=== PATIENT | female | born 1940 | race African-American/Black ===

== ENCOUNTER 2024-12-16 17:42 | Inpatient (IN) | payer MEDICARE, BC ==
[~2024-12-16] VITALS: Ht 162.6 cm; Wt 53.1 kg
--- NOTE | 2024-12-16 18:42 | ECG ---
[facility] Test Date: 2024-12-16 Test Time: 18:41:27 Pat Name: DELVIS PRITCHARD Department: [facility] ED Patient ID: [facility]-[id number] Room: 0279T Gender: F Milling Machine Operator: CASSIDY : 1940 Requested By: SERGIO ESPANA Order Number: [id number] Reading MD: Cain Millard Measurements Intervals [place] Rate: 68 P: -38 MI: 189 QRS: -54 QRSD: 111 T: 100 QT: 388 QTc: 413 Interpretive Statements Sinus rhythm Probable left atrial enlargement Incomplete RBBB and LAFB Electronically Signed On 12-19-2024 20:35:00 PDT by Cain Millard Please click the below link to view image of tracing.
--- NOTE | 2024-12-16 18:45 | ED.PDOC ---
SOB-HPI HPI Comments HPI: 84 year old female presents to the ED via EMS with a chief compliant of shortness of breath onset 2 days. Per EMS, patient has been experiencing shortness of breath for the past 2 days, is on home O2 2L. Patient was seen by PCP 2 days ago for a productive cough with brown phlegm, was prescribed z-pac, albuterol, Solu-Medrol. Patient states she is currently experiencing mid thoracic back pain as well as chest pain, describes pain as a sharp pain, rates 6/10. Daughter states she noticed patient's LT foot has been swollen for the past few days. Denies fever, chills, nausea, vomiting, diarrhea, abdominal pain, headache, dizziness, fall, injury. No other symptoms or modifying factors present at this time. Initial Vitals BP: 130/78 HR: 67 RR: 18 O2: 94% Temp: 99.1 F Past Medical History: aortic aneurysm, mid thoracic aneurysm, iliac aneurysm, emphysema, HTN Past Surgical History: hip surgery Social History: Denies ETOH, smoking, and drug use. Medications: z-pac Allergies: NKDA TARLTON; SOB, PALE, R EYE CLOSED, COUGH Z PACK. DAUGHTER AT BESIDE. HPI: Poor Historian. REVIEW OF SYSTEMS: CONSTITUTIONAL: Denies acute: fever, diaphoresis, chills, HEAD: Denies acute: headache, photophobia Eyes: Denies acute: Double vision, vision loss, eye pain, eye discharge. EARS: Denies acute: tinnitus, hearing loss, ear discharge, ear pain, THROAT: Denies acute: sore throat, swelling, difficulty swallowing , pain with swallowing, change in voice. NECK: Denies acute: neck pain, neck swelling, stiff neck. HEART: Denies acute : chest pain, palpitations, LUNGS: Denies acute: wheezing, hemoptysis ABDOMEN: Denies acute: Nausea, Vomiting, diarrhea, melena , hematemesis, hematochezia SKIN: Denies acute: rash, redness, lesions, itchiness. EXTREMITIES: Denies acute: calf pain, numbness, tingling, weakness, denies pain in extremity. Denies acute: Neuro: Denies acute: focal neurological deficit, motor or sensory focal neurological deficit, tremors, seizure like activity, confusion, dizziness, change in mental status, loss of bowel or bladder function, cauda equina like symptoms. : Denies acute: dysuria, hematuria, flank pain, increase in urinary frequency. PSYCH: Denies acute: hallucination, suicidal ideation, homicidal ideation. FEMALE: Denies acute: abnormal vaginal bleeding, foul odor, unusual discharge. PHYSICAL EXAM: General: -----[id number]---acute distress, awake and alert. Head: normocephalic, atraumatic. Neck: supple, trachea is midline, no swelling. Throat: Normal phonation. Eyes:, no erythema, no purulent discharge, no proptosis, no icterus. Right eye is closed with a history of aneurysm behind the right eye Heart: regular rate, regular rhythm, no significant murmur appreciated. Lungs: no apparent respiratory distress, Able to speak in full sentences. No wheezing, no rhonchi, no crackles. No stridors Clear to auscultation bilaterally. Abdomen: Slight generalized tender to palpation, non distended, soft, no guarding, no rebound, + bowel sounds. Neuro: Awake, Alert, oriented to name, self, situation, follows commands GCS=15. Speech is normal. Skin: no petechia, no purpura, no cyanosis, non-pale, not jaundice. Lower extremities: --no - Pitting edema no deformity, no focal swelling, no calf TTP. Makes eye contact. moves all four extremities. Face: no apparent facial droop. ED COURSE: DISCLAIMER: This medical document was created using an electronic medical record system with voice recognition software and computerized dictation system. Although this document has been carefully reviewed, there might still be some phonetic and typographical errors. Occasional wrong-word or "sound-alike" substitutions may have occurred due to the inherent limitations of voice recognition software. These areas are purely typographical due to imperfections of the software programs and do not reflect any compromise in the patient's medical care. Please read the chart carefully and recognize, using context, where these substitutions have occurred. Chief Complaint: Shortness of Breath Time Seen by MD: 18:30 Reviewed notes: Medications, Allergies Information Source: Patient, Relative (Child), Emergency Med Personnel Mode of Arrival: EMS Severity: Moderate Timing: Days Duration: Since onset Context: At Rest PE Risk Factors: None History of: Recent Antibiotic Past Medical History PAST MEDICAL HISTORY: HTN Past Medical History (Other): emphysema, aneurysm Surgical History: Denies all surgeries BUILDING DRAFTER History: No Pertinent BUILDING DRAFTER History Family History Family History: Reviewed,noncontributory to illness, No family hx of Cancer, No family hx of DM, No family hx of Heart marino, No family hx of HTN, No family hx ofKidney marino, No family hx of Liver marino, No family hx of Lung marino, No family hx of Stroke Social History Smoker: Non-Smoker Alcohol: Denies ETOH Use Drugs: Denies Drug Use Lives In: Home Was a procedure done? Was a procedure done?: No X-Ray, Labs, Meds, VS Vital Signs Date Time Temp Pulse Resp B/P (MAP) Pulse Ox O2 Delivery O2 Flow Rate FiO2 12/16/24 20:36 64 20 91 Nasal Cannula* 2 28 12/16/24 19:31 64 20 126/75 (92) 91 12/16/24 18:41 68 12/16/24 17:51 99.1 67 18 130/78 94 99.1 Lab Test 12/16/24 19:43 12/16/24 18:55 Range/Units Troponin I High Sensitivity 19 19 </=34 ng/L White Blood Count 7.5 4.4-10.8 10^3/uL Red Blood Count 3.62 L 4.0-5.20 10^6/uL Hemoglobin 11.3 L 12.2-16.2 g/dL Hematocrit 33.4 L 36.0-46.0 % Mean Corpuscular Volume 92.4 80.0-100.0 fL Mean Corpuscular Hemoglobin 31.1 28.0-32.0 pg Mean Corpuscular Hemoglobin Concent 33.7 32.0-36.0 g/dL Red Cell Distribution Width 14.1 11.8-14.3 % Platelet Count 192 140-450 10^3/uL Mean Platelet Volume 6.7 L 6.9-10.8 fL Neutrophils (%) (Auto) 94.7 H 37.0-80.0 % Lymphocytes (%) (Auto) 2.2 L 10.0-50.0 % Monocytes (%) (Auto) 3.0 0.0-12.0 % Eosinophils (%) (Auto) 0.0 0.0-7.0 % Basophils (%) (Auto) 0.1 0.0-2.0 % Neutrophils # (Auto) 7.1 1.6-8.6 10 ^3/uL Lymphocytes # (Auto) 0.2 L 0.4-5.4 10 ^3/uL Monocytes # (Auto) 0.2 0-1.3 10 ^3/uL Eosinophils # (Auto) 0 0-0.8 10 ^3/uL Basophils # (Auto) 0 0-0.2 10 ^3/uL Nucleated Red Blood Cells 0.0 % Sodium Level 135 L 136-145 mmol/L Potassium Level 4.8 3.5-5.1 mmol/L Chloride Level 98 98-107 mmol/L Carbon Dioxide Level 27 20-31 mmol/L Anion Gap 10 5-15 Blood Urea Nitrogen 32 H 9-23 mg/dL Creatinine 1.18 H 0.550-1.02 mg/dL Glomerular Filtration Rate Calc 46 >90 mL/min BUN/Creatinine Ratio 27.1 H 10.0-20.0 Serum Glucose 122 H 74-106 mg/dL Lactic Acid Level 2.1 *H 0.4-2.0 mmol/L Calcium Level 10.6 H 8.7-10.4 mg/dL Total Bilirubin 0.4 0.2-1.0 mg/dL Aspartate Amino Transferase (AST) 20 13-40 U/L Alanine Aminotransferase (ALT) 22 7-40 U/L Alkaline Phosphatase 103 46-116 U/L B-Type Natriuretic Peptide 357.93 0-100 pg/mL Total Protein 7.4 5.7-8.2 g/dL Albumin 4.0 3.2-4.8 g/dL Time of 1ST Reevaluation: 19:00 Reevaluation 1ST: Unchanged Patient Education/Counseling: Diagnosis, Treatment Family Education/Counseling: Diagnosis, Treatment Departure 1 Departure Time of Disposition: 21:00 Impression: Primary Impression: Dyspnea Additional Impressions: Pleural effusion Pneumonia History of aneurysm Disposition: ADMITTED INPATIENT Admit to: [facility] Condition: Guarded Discharged With: Self Critical Care Note Critical Care Time?: No I personally scribed for SERGIO ESPANA DO ([email or web address]) on 12/16/24 at 18:45. Electronically submitted by Laura Gomez ([email or web address]). I personally scribed for SERGIO ESPANA DO ([email or web address]) on 12/16/24 at 19:20. Electronically submitted by Laura Gomez [email or web address]). SERGIO ESPANA DO Dec 16, 2024 18:45
[2024-12-16 19:22] LABS: Hematocrit 33.4 % (36.0-46.0); Hemoglobin 11.3 g/dL (12.2-16.2); Mean Corpuscular Hemoglobin 31.1 pg (28.0-32.0); Mean Corpuscular Volume 92.4 fL (80.0-100.0); Nucleated Red Blood Cells % 0.0 %
--- NOTE | 2024-12-16 19:34 | DVH ---
CHEST RADIOGRAPH Indication: sob Technique: Single frontal view of the chest was obtained COMPARISON: CT CHEST LUNG CANCER SCREEN BASELINE / ANNUAL on DOS: 10/09/24 FINDINGS: Lines and Tubes: None Lungs: Bibasilar opacities may reflect atelectasis or pneumonia Pleura: Small bilateral pleural effusions. No pneumothorax. Cardiomediastinal contours: Unremarkable Bones: Unremarkable IMPRESSION: 1. Small bilateral pleural effusions. 2. Bibasilar opacities may reflect atelectasis or pneumonia.
[2024-12-16 19:37] LABS: Alanine Aminotransferase 22 U/L (7-40); Albumin 4.0 g/dL (3.2-4.8); Alkaline Phosphatase 103 U/L (46-116); Anion Gap 10 (5-15); BUN/Creatinine Ratio 27.1 (10.0-20.0); Carbon Dioxide 27 mmol/L (20-31); Chloride 98 mmol/L (98-107); Potassium 4.8 mmol/L (3.5-5.1); Total Protein 7.4 g/dL (5.7-8.2)
[2024-12-16 19:38] LABS: Bilirubin, Total 0.4 mg/dL (0.2-1.0)
[2024-12-16 19:39] LABS: Blood Urea Nitrogen 32 mg/dL (9-23); Calcium 10.6 mg/dL (8.7-10.4); Glucose 122 mg/dL (74-106); Sodium 135 mmol/L (136-145)
[2024-12-16 19:43] LABS: Lactic Acid w/Reflex 2.1 mmol/L (0.4-2.0)
[2024-12-16] MEDS: IOHEXOL 350 MG/ML 100ML IJ ONE (20:24)
[2024-12-16 20:36] VITALS: PULSE 64; RESP 20; O2SAT 91
--- NOTE | 2024-12-16 21:07 | DVH ---
Exam: CT CT CHEST/AB/PL W CON- IV ONLY History: sob, abd pain h/o aneurysm, COMPARISON: XY CHEST PORTABLE on DOS: 12/16/24, CT CHEST LUNG CANCER SCREEN BASELINE / ANNUAL on DOS: 10/09/24 Technique: Multidetector spiral CT of the abdomen and pelvis was performed from lung bases to pubic s ymphysis. Intravenous contrast was administered during this examination. Portal venous imaging was obtained. Axial, coronal and sagittal multiplanar reformats were performed by the technologist on a separate workstation. Radiation Dose : 1. Abdomen/Pelvis: CTDIvol 8.1mGy, DLP 5.44 mGy*cm. CONTRAST: Type of contrast: Isovue-300 Contrast injected: 100 ml Findings: Lung Bases: Bibasilar consolidations may reflect pneumonia or aspiration. Moderate bilateral pleural effusions. Liver: The liver is normal in size. No focal lesions. Normal hepatic vascular enhancement. Gallbladder and Biliary Tree: Unremarkable Spleen: Unremarkable Pancreas: The pancreas is normal in appearance without focal lesions or abnormal enhancement. Adrenal Glands: Unremarkable Kidneys: No hydronephrosis. Bladder: Unremarkable Bowel: The stomach is grossly normal in appearance. Small bowel and colon are normal in caliber and d istribution. The appendix is not visualized; however, no secondary findings of acute appendicitis id entified. Ascites: Absent Lymphadenopathy: No mesenteric, retroperitoneal or periportal lymphadenopathy. Abdominal Wall and Mesentery: Unremarkable. Vasculature: Aneurysmal dilatation of the aortic arch measuring up to 3.6 cm in diameter. Aneurysmal dilatation of the suprarenal abdominal aorta measuring up to 6.5 x 8.6 cm. Aneurysmal dilatation of t he infrarenal abdominal aorta measuring up to 4.5 cm. Aneurysmal dilatation of the left common iliac artery up to 2.4 cm. Aneurysmal dilatation of the right common iliac artery up to 2.3 cm. No pulmona ry embolism identified. Pelvic Organs: Unremarkable Musculoskeletal: Status post left hip arthroplasty. IMPRESSION: 1. No pulmonary embolism 2. Bibasilar consolidations may reflect pneumonia or aspiration. 3. Moderate bilateral pleural effusions. 4. Aneurysmal dilatation of the aortic arch measuring up to 3.6 cm in diameter. No dissection. 5. Aneurysmal dilatation of the suprarenal abdominal aorta measuring up to 6.5 x 8.6 cm. No dissectio n. 6. Aneurysmal dilatation of the infrarenal abdominal aorta measuring up to 4.5 cm. No dissection. 7. Aneurysmal dilatation of the left common iliac artery up to 2.4 cm. No dissection. 8. Aneurysmal dilatation of the right common iliac artery up to 2.3 cm. No dissection. Radiation optimization: All CT scans at this facility use at least one of these dose optimization federica hniques: automated exposure control mA and/or kV adjustment per patient size (includes targeted exam s where dose is matched to clinical indication) or iterative reconstruction.
[2024-12-16] MEDS: FUROSEMIDE 40 MG/4 ML VIAL IV ONE (21:21)
[2024-12-16] MEDS: IPRATROPIUM BROM 0.5 MG/2.5ML INH SOL NEB ONE (21:44)
[2024-12-16] MEDS: ALBUTEROL SULF 2.5 MG/0.5ML(0.5%) NEB SOLN NEB ONE (21:44)
[2024-12-16] MEDS: methylPREDNISolone SOD SUCC 125 MG/2 ML VL IV ONE (22:19)
--- NOTE | 2024-12-16 23:08 | DVHHPRES ---
History of Present Illness Resident Creating Document: NEYMAR JORDAN History of Present Illness Cecile Sloan is a 84-year-old female patient who presents to ED with chief complaint of worsening dyspnea and left-sided chest pain which radiates towards back and worsens with cough, cough is productive with light brown phlegm. Per patient her dyspnea has been present since 11/10/2024 since she has been discharged from the [facility], where she was discharged with home oxygen between 2-3 L/min). Patient did present worsening dyspnea, but after presenting chest pain and productive car, patient and daughter decided to be evaluated in the emergency department. Patient does report ptosis of her right eye since April 2024, where she has been evaluated by neurologist and primary care physician who diagnosed her with a cerebral aneurysm (per daughter and patient this aneurysm is not the cause of her ptosis). Patient needs to be evaluated by an farm agent Denies any other associated symptoms. 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 Aortic aneurysm is getting more dilated as time progresses but patient is clear that she does not want to do any invasive procedure. COPD, questionable cerebral aneurysm Surgical history: Left hip replacement, right foot repair Family history: Unknown cancer in sister, heart disease in father and mother Social history: Lives in [place] with daughter (she is the [id number] next of kin). Ex tobacco abuse (60 pack-year history of smoking) quit in November 2024. 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 Denies current tobacco, alcohol and other drug abuse. Patient originally from [place] , moved in April to [place] to resolve her left right eye ptosis. Allergies: Denies Home medication: Does not recall all her medication but she takes atenolol and amlodipine. Patient seen and examined at bedside. Currently has no new complaints. Is currently on nasal cannula at 4 L/min. Patient admitted to telemetry. Past Medical History Per HPI Past Surgical History Per HPI Family History Per HPI Past Social History Per HPI Review of Systems Review of Systems Per HPI Allergies: Coded Allergies: NO KNOWN ALLERGIES (Unverified , 12/16/24) Exam Vital Signs Vital Signs Date Time Temp Pulse Resp B/P (MAP) Pulse Ox O2 Delivery O2 Flow Rate FiO2 12/16/24 22:00 70 18 142/84 (103) 96 12/16/24 21:52 Nasal Cannula* 3 32 12/16/24 21:01 97.8 97.8 Exam Patient lying in bed, in no acute distress General: Lucid, afebrile, mucosae are moist. Ptosis of right eye and ocular deviation of right eye towards lateral side. Cardiovascular: Normal S1 and S2. Diastolic murmur best heard in aortic foci decrescendo intensity 3/6. No gallops or rubs Respiratory: Regular ventilation mechanics, on nasal cannula at 4 L/min. Bibasilar distant lung sounds, rest of lung auscultation is clear Abdomen: Soft, nontender, no organomegaly, normal bowel sounds. Pulsatile mass best felt in epigastrium area. MSK/skin: Mobilizes 4 limbs. Skin is dry and warm Neurological: Oriented in 3 spheres. No motor no sensitive deficits. Pupils are isocoric and reactive Labs/Xrays Labs Test 12/16/24 22:14 12/16/24 21:51 12/16/24 21:15 12/16/24 18:55 Range/Units Troponin I High Sensitivity 19 </=34 ng/L Lactic Acid Level 2.0 0.4-2.0 mmol/L White Blood Count 7.5 4.4-10.8 10^3/uL Red Blood Count 3.62 L 4.0-5.20 10^6/uL Hemoglobin 11.3 L 12.2-16.2 g/dL Hematocrit 33.4 L 36.0-46.0 % Mean Corpuscular Volume 92.4 80.0-100.0 fL Mean Corpuscular Hemoglobin 31.1 28.0-32.0 pg Mean Corpuscular Hemoglobin Concent 33.7 32.0-36.0 g/dL Red Cell Distribution Width 14.1 11.8-14.3 % Platelet Count 192 140-450 10^3/uL Mean Platelet Volume 6.7 L 6.9-10.8 fL Neutrophils (%) (Auto) 94.7 H 37.0-80.0 % Lymphocytes (%) (Auto) 2.2 L 10.0-50.0 % Monocytes (%) (Auto) 3.0 0.0-12.0 % Eosinophils (%) (Auto) 0.0 0.0-7.0 % Basophils (%) (Auto) 0.1 0.0-2.0 % Neutrophils # (Auto) 7.1 1.6-8.6 10 ^3/uL Lymphocytes # (Auto) 0.2 L 0.4-5.4 10 ^3/uL Monocytes # (Auto) 0.2 0-1.3 10 ^3/uL Eosinophils # (Auto) 0 0-0.8 10 ^3/uL Basophils # (Auto) 0 0-0.2 10 ^3/uL Nucleated Red Blood Cells 0.0 % Sodium Level 135 L 136-145 mmol/L Potassium Level 4.8 3.5-5.1 mmol/L Chloride Level 98 98-107 mmol/L Carbon Dioxide Level 27 20-31 mmol/L Anion Gap 10 5-15 Blood Urea Nitrogen 32 H 9-23 mg/dL Creatinine 1.18 H 0.550-1.02 mg/dL Glomerular Filtration Rate Calc 46 >90 mL/min BUN/Creatinine Ratio 27.1 H 10.0-20.0 Serum Glucose 122 H 74-106 mg/dL Calcium Level 10.6 H 8.7-10.4 mg/dL Total Bilirubin 0.4 0.2-1.0 mg/dL Aspartate Amino Transferase (AST) 20 13-40 U/L Alanine Aminotransferase (ALT) 22 7-40 U/L Alkaline Phosphatase 103 46-116 U/L B-Type Natriuretic Peptide 357.93 0-100 pg/mL Total Protein 7.4 5.7-8.2 g/dL Albumin 4.0 3.2-4.8 g/dL SEPSIS Sepsis Screen Date sepsis recognized/suspect: Dec 16, 2024 Time Sepsis recognized/suspect: 1929 Recent Procedure: No On Antibiotic Therapy: No Respiratory Rate >20: No Heart Rate >90: No Temp<36 C (96.8 F) or >38.3 C: No SBP <90 or MAP <65 mmHG: No New Acute Mental Status Change: No Is the patient on CPAP, BIPAP,: No Physician Orders Sales Utility Representative (12/16/24 ) Chest Portable (12/16/24 18:28) Ct Chest/Ab/Pl W Con- Iv Only (12/16/24 18:28) Urinalysis (12/16/24 22:12) Admit (12/16/24 23:01) Code Status (12/16/24 23:01) Acetaminophen Tablet (Tylenol Tablet) (12/16/24 23:15) Hydrocodone-Acet 5/325mg Tab ([place] 32 (12/16/24 23:15) Ondansetron Hcl (Zofran) (12/16/24 23:15) Complete Blood Count (12/17/24 04:00) Comprehensive Metabolic Panel (12/17/24 04:00) Cardiac Diet-2gna,Lofat,Lochol (12/17/24 Breakfast) Echo 2d Mode Cardiac Dop (12/16/24 23:01) Nitroglycerin Sublingual (Ntrostat Subli (12/16/24 23:15) Morphine Sulfate Injection (12/16/24:) Oxygen By Nasal Cannula (12/16/24:) Stat Ekg For Chest Pain (12/16/24:) Notify Md Of Changes From Base (12/16/24 23:) Teasel Gig Operator For 24 Hours (12/16/24 23:01) Emergency Dysrhythmia Protocol (12/16/24 23:) Rhythm Strips Once Every Shift (12/16/24 23:01) Azithromycin 500mg/ 250ml (Zithromax 50 (12/17/24 10:00) Azithromycin 500mg/ 250ml (Zithromax 50 (12/16/24 23:15) Cefepime 1 Gm (12/17/24 10:00) Cefepime 1 Gm (12/16/24 23:15) Labetalol Hcl (Labetalol Hcl) (12/16/24 23:15) Atenolol Tablet (Tenormin Tablet) (12/17/24 10:00) Atenolol Tablet (Tenormin Tablet) (12/16/24 23:15) Vital Signs Date Time Temp Pulse Resp B/P (MAP) Pulse Ox O2 Delivery O2 Flow Rate FiO2 12/16/24 22:00 70 18 142/84 (103) 96 12/16/24 21:52 16 93 Nasal Cannula* 3 32 12/16/24 21:21 126/77 12/16/24 21:01 97.8 73 22 104/58 (73) 91 97.8 12/16/24 20:36 64 20 91 Nasal Cannula* 2 28 12/16/24 19:31 64 20 126/75 (92) 91 12/16/24 18:41 68 12/16/24 17:51 99.1 67 18 130/78 94 99.1 Laboratory Tests Test 12/16/24 18:55 12/16/24 21:15 Lactic Acid Level 2.1 mmol/L (0.4-2.0) *H 2.0 mmol/L (0.4-2.0) White Blood Count 7.5 10^3/uL (4.4-10.8) Medications Medications Dose Ordered Sig/Nicky Route Start Time Stop Time Status Last Admin Dose Admin Albuterol 2.5 mg ONCE ONCE NEB 12/16/24 21:30 12/16/24 21:37 DC 12/16/24 21:44 2.5 MG Ceftriaxone Sodium 50 ml @ 100 mls/hr ONCE ONCE IV 12/16/24 21:00 12/16/24 21:29 DC 12/16/24 21:23 100 MLS/HR Furosemide 40 mg ONCE ONCE IV 12/16/24 21:00 12/16/24 21:02 DC 12/16/24 21:21 40 MG Ipratropium [place] 1 mg ONCE ONCE NEB 12/16/24 21:30 12/16/24 21:37 DC 12/16/24 21:44 1 MG Methylprednisolone Sodium Succinate 125 mg ONCE ONCE IV 12/16/24 21:30 12/16/24 21:37 DC 12/16/24 22:19 125 MG Assessment/Plan Assessment/Plan ASSESSMENT Acute respiratory failure probably secondary to pneumonia versus bilateral pleural effusion Community-acquired pneumonia Gram-positive/Gram-negative Bilateral pleural effusion COPD exacerbation 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 Currently on oxygen therapy with nasal cannula [address] of chest which shows no pulmonary embolism, bibasilar consolidation, moderate bilateral pleural effusion and aortic aneurysm and arch (3.6 cm), suprarenal abdominal aorta (6.5 x 8.6 cm), infrarenal abdominal aorta (4.5) left common iliac (2.4 cm) and right common iliac (2.3 cm). Aortic aneurysm appears to compress right atrium of heart. Patient clearly states that she is not interested in repair of her aortic aneurysm. We will not transferred to higher level of care due to patient's wishes to not repair her aortic aneurysm. Currently under empiric IV antibiotic (cefepime and azithromycin). On IV stero ids and bronchodilators Optimize afterload and preload to reduced parietal stress of aorta. Currently continue with the atenolol and IV labetalol PRN Goals of care discussed with patient and daughter ([id number]) for over 18 minutes: DNR/DNI Discussed plan with Dr. Dias, patient and nurses: Patient will be admitted to telemetry, we will optimize medical treatment (including optimizing afterload and preload). Currently under empiric IV antibiotics, oxygen therapy, bronchodilators and IV steroids. Patient has poor prognosis. A biting by patient's wishes in not transferred to higher level of care since patient does not want to repair her aortic aneurysm. Plan discussed with: Patient, Daughter, Other (Nurses) My Orders Orders - NEYMAR JORDAN RESIDENT Procedure Category Date Status Time Urinalysis LAB 12/16/24 In Process 22:12 Admit ADMIT 12/16/24 Transmitted 23:01 Code Status CODE 12/16/24 Transmitted 23:01 Acetaminophen Tablet PHA 12/16/24 Transmitted (Tylenol Tablet) 23:15 Hydrocodone-Acet PHA 12/16/24 Transmitted 5/325mg Tab ([place] 23:15 Ondansetron Hcl PHA 12/16/24 Transmitted (Zofran) 23:15 Complete Blood Count LAB 12/17/24 Verified 04:00 Comprehensive LAB 12/17/24 Verified Metabolic Panel 04:00 Cardiac DIET 12/17/24 Transmitted Diet-2gna,Lofat,Lochol Breakfast Echo 2d Mode Cardiac US 12/16/24 Transmitted DOP 23:01 Nitroglycerin PHA 12/16/24 Transmitted Sublingual (Ntrostat 23:15 Morphine Sulfate PHA 12/16/24 Transmitted Injection 23:15 Oxygen By Nasal RT 12/16/24 Transmitted Cannula 23:01 Stat Ekg For Chest BERTA 12/16/24 Transmitted Pain 23:01 Notify Of Changes BERTA 12/16/24 Transmitted From Base 23:01 Teasel Gig Operator For BERTA 12/16/24 Transmitted 24 Hours 23:01 Emergency Dysrhythmia [facility] 12/16/24 Transmitted Protocol 23:01 Rhythm Strips Once [facility] 12/16/24 Transmitted Every Shift 23:01 Azithromycin 500mg/ PHA 12/17/24 Transmitted 250ml (Zithromax 50 10:00 Azithromycin 500mg/ PHA 12/16/24 Transmitted 250ml (Zithromax 50 23:15 Cefepime 1 Gm PHA 12/17/24 Transmitted 10:00 Cefepime 1 Gm PHA 12/16/24 Transmitted 23:15 Labetalol Hcl PHA 12/16/24 Transmitted (Labetalol Hcl) 23:15 Atenolol Tablet PHA 12/17/24 Transmitted (Tenormin Tablet) 10:00 Atenolol Tablet PHA 12/16/24 Transmitted (Tenormin Tablet) 23:15 Date of Service: Dec 16, 2024 Billing Provider: NEO DIAS MD Common Visit Codes: 40850-MCPXXYA INP/OBS CARE (HIGH) Secondary Visit Codes: 48860-FIVDHCID CARE PLAN 30 MINUTES NEYMAR JORDAN RESIDENT Dec 16, 2024 23:08
[2024-12-16] MEDS ORDERED: LABETALOL HCL 20 MG/4 ML VL IV PRN (23:15)
[2024-12-16] MEDS ORDERED: NITROGLYCERIN 0.4 MG SL TAB SL PRN (23:15)
[2024-12-16] MEDS ORDERED: ONDANSETRON HCL 4 MG/2 ML VIAL IV PRN (23:15)
[2024-12-16] MEDS ORDERED: MORPHINE SULFATE INJ 2 MG/ml SYRG IV PRN (23:15)
[2024-12-16] MEDS ORDERED: ACETAMINOPHEN 325 MG TAB PO PRN (23:15)
[2024-12-16] MEDS: SODIUM CHLORIDE 0.9% 1,000 ML IV ONE (23:30)
[2024-12-16] MEDS: LEVALBUTEROL HCL 1.25 MG/3 ML NEB ONE (23:35)
[2024-12-16 23:45] VITALS: PULSE 72; RESP 21; O2SAT 95
[2024-12-16 23:45] LABS: Urine Protein, UAD Negative (Negative)
[2024-12-16 23:51] VITALS: PULSE 70; RESP 19; O2SAT 98
[2024-12-17] VITALS (15 sets, daily range): BP systolic 114–144; BP diastolic 74–98; PULSE 53–94; RESP 16–22; TEMP 97.6–98.2; O2SAT 89–100
[2024-12-17 00:08] LABS: INR 1.19 (0.9-1.15); Partial Thromboplastin Time 30.7 SEC (24.5-34.5); Prothrombin Time 12.4 sec (9.3-11.8)
[2024-12-17 00:28] LABS: Magnesium 2.1 mg/dL (1.6-2.6); Triglycerides 42.0 mg/dL (< 150)
[2024-12-17 00:30] LABS: Cholesterol 151.0 mg/dL (< 200)
[2024-12-17 00:35] LABS: HDL Cholesterol 67.0 mg/dL (40-59)
[2024-12-17 00:46] LABS: Lipase 26.0 U/L (12-53)
[2024-12-17] MEDS: CEFEPIME 1GM/50ML 50 ML IV ONE (01:42)
[2024-12-17] MEDS: ATENOLOL 25 MG TAB PO ONE (01:43)
[2024-12-17] MEDS ORDERED: AMLO1TAB23 PO (02:41)
[2024-12-17] MEDS: SODIUM CHLORIDE 0.9% 1,000 ML IV SCH (02:43)
[2024-12-17] MEDS: AZITHROMYCIN 500MG/ 250ML 250 ML IV ONE (02:55)
[2024-12-17 04:43] LABS: Amphetamine Screen, Urine Neg (NEGATIVE); Barbiturate Scree,Urine Neg (NEGATIVE); Benzodiazephine Screen, Urine Neg (NEGATIVE); Cannabinoid Screen, Urine Neg (NEGATIVE); Cocaine Screen, Urine Neg (NEGATIVE); Opiate Scree,Urine Neg (NEGATIVE); Phencyclidine Screen, Urine Neg (NEGATIVE)
[2024-12-17] MEDS: IPRATROPIUM BROM 0.5 MG/2.5ML INH SOL NEB SCH (07:15)
[2024-12-17] MEDS: LEVALBUTEROL HCL 1.25 MG/3 ML NEB NEB SCH (07:15)
[2024-12-17 07:25] LABS: Alanine Aminotransferase 17 U/L (7-40); Albumin 4.0 g/dL (3.2-4.8); Alkaline Phosphatase 107 U/L (46-116); Anion Gap 11 (5-15); BUN/Creatinine Ratio 23.3 (10.0-20.0); Carbon Dioxide 29 mmol/L (20-31); Potassium 4.3 mmol/L (3.5-5.1); Total Protein 7.7 g/dL (5.7-8.2)
[2024-12-17 07:26] LABS: Bilirubin, Total 0.4 mg/dL (0.2-1.0)
[2024-12-17 07:28] LABS: Blood Urea Nitrogen 28 mg/dL (9-23); Calcium 10.6 mg/dL (8.7-10.4); Chloride 95 mmol/L (98-107); Glucose 126 mg/dL (74-106); Sodium 135 mmol/L (136-145)
[2024-12-17 07:30] LABS: Hematocrit 35.2 % (36.0-46.0); Hemoglobin 11.9 g/dL (12.2-16.2); Mean Corpuscular Hemoglobin 31.2 pg (28.0-32.0); Mean Corpuscular Volume 92.3 fL (80.0-100.0)
[2024-12-17 09:25] LABS: RBC Morphology Normal; Total Cells Counted 100.0 (100)
[2024-12-17] MEDS: CEFEPIME 1GM/50ML 50 ML IV SCH (09:35)
[2024-12-17] MEDS: HYDROcodone-ACET 5/325MG TAB PO PRN (09:36)
[2024-12-17] MEDS: methylPREDNISolone SOD SUCC 40 MG/ML VL IV SCH (09:40)
[2024-12-17] MEDS: ATENOLOL 25 MG TAB PO SCH (10:39)
--- NOTE | 2024-12-17 14:44 | DVHPN2 ---
Progress Note Date Seen: Dec 17, 2024 Medical Necessity Reason Pt with a Central, PICC or Fol: No Subjective Patient reports: No new complaints Review of Systems: HEENT:Normal, CVS:Normal, RESPIRATORY:Normal, GI:Normal, :Normal, MSK:Normal, NEURO:Normal Objective vital signs Vital Sign Date Time Temp Pulse Resp B/P (MAP) Pulse Ox O2 Delivery O2 Flow Rate FiO2 12/17/24 13:00 97.6 53 17 124/82 (96) 91 97.6 12/17/24 11:58 Nasal Cannula* 1 24 Total Intake and Output 12/16/24 12/16/24 12/17/24 15:00 23:00 07:00 Intake Total 50 ml 300 ml Balance 50 ml 300 ml medications Current Medications Medications Dose Ordered Sig/Nicky Route Start Time Stop Time Status Last Admin Dose Admin Acetaminophen 325 mg Q4HP PRN PO 12/16/24 23:15 Acetaminophen/ Hydrocodone Bitart 1 tab Q4HP PRN PO 12/16/24 23:15 12/17/24 09:36 1 TAB Ondansetron HCl 4 mg Q4HP PRN IV 12/16/24 23:15 Nitroglycerin 0.4 mg Q5MINP PRN SL 12/16/24 23:15 Morphine Sulfate 2 mg Q30M PRN IV 12/16/24 23:15 Azithromycin 250 ml @ 125 mls/hr DAILY@2100 IV 12/17/24 21:00 Cefepime HCl 50 ml @ 12.5 mls/hr Q12HR IV 12/17/24 10:00 12/17/24 09:35 12.5 MLS/HR Labetalol HCl 10 mg Q2HPRN PRN IV 12/16/24 23:15 Atenolol 50 mg DAILY PO 12/17/24 10:00 12/17/24 10:39 50 MG Levalbuterol HCl 0.625 mg Q6HR NEB 12/17/24 00:00 12/17/24 11:58 0.625 MG Ipratropium [place] 0.5 mg Q6HWA NEB 12/17/24 06:00 12/17/24 11:58 0.5 MG Methylprednisolone Sodium Succinate 40 mg BID IV 12/17/24 10:00 12/17/24 09:40 40 MG Sodium Chloride 1,000 ml @ 50 mls/hr Q20H IV 12/17/24 02:30 12/17/24 02:43 50 MLS/HR Examination: GENERAL:Normal, HEENT:Normal, NECK:Normal, LUNGS:Normal, CVS:Normal, ABDOMEN:Normal, MSK:Normal, SKIN:Normal, NEURO:Normal, NEURO:Abnormal (right ptosis), :Normal laboratory and microbiology Laboratory Tests 12/17/24 06:11 Test 12/17/24 06:11 Range/Units Serum Glucose 126 H 74-106 mg/dL Problem List/Assessment/Plan Problem List/Assessment/Plan #1 acute resp failure: cont oxygen #2 copd with exacerbation: cont meds #3 pneumonia- gram positive/neg: iv antibiotics #4 ?acute systolic/diastolic heart failure: echo #5 multiple aneurysms- does not wish aggressive treatment- is aware of aneurysms advance care planning- time spent - 18 mins- dnr status Plan discussed with: Patient My Orders My Orders Orders - TONY SERRATO MD Procedure Category Date Status Time Ceftriaxone Ivpb PHA 12/18/24 Transmitted Rocephin 09:00 Azithromycin Tablet PHA 12/18/24 Transmitted (Zithromax Tablet) 10:00 Basic Metabolic Panel LAB 12/18/24 Verified 06:00 Complete Blood Count LAB 12/18/24 Verified 06:00 Date of Service: Dec 17, 2024 Billing Provider: TONY SERRATO MD Common Visit Codes: [id number] INP/OBS CARE(HIGH) Secondary Visit Codes: [id number] CARE PLAN 30 MINUTES TONY SERRATO MD Dec 17, 2024 14:44
[2024-12-17] MEDS: DOCUSATE SOD 100 MG CAP PO ONE (14:45)
[2024-12-17] MEDS: POLYETHYLENE GLYCOL 17 GM PWDR PO ONE (16:31)
[2024-12-17] MEDS ORDERED: AZITHROMYCIN 500MG/ 250ML 250 ML IV SCH (21:00)
[2024-12-18] VITALS (14 sets, daily range): BP systolic 124–140; BP diastolic 82–98; PULSE 53–74; RESP 16–18; TEMP 96.4–99.1; O2SAT 89–99
[2024-12-18 07:37] LABS: Hematocrit 34.4 % (36.0-46.0); Hemoglobin 11.6 g/dL (12.2-16.2); Mean Corpuscular Hemoglobin 31.2 pg (28.0-32.0); Mean Corpuscular Volume 92.1 fL (80.0-100.0); Nucleated Red Blood Cells % 0.0 %
[2024-12-18 07:46] LABS: Potassium 4.9 mmol/L (3.5-5.1)
[2024-12-18 07:47] LABS: Anion Gap 7 (5-15); Calcium 10.2 mg/dL (8.7-10.4); Carbon Dioxide 30 mmol/L (20-31)
[2024-12-18 07:52] LABS: BUN/Creatinine Ratio 33.3 (10.0-20.0)
[2024-12-18 07:53] LABS: Blood Urea Nitrogen 45 mg/dL (9-23); Chloride 95 mmol/L (98-107); Glucose 153 mg/dL (74-106); Sodium 132 mmol/L (136-145)
[2024-12-18] MEDS: AZITHROMYCIN 250 MG TAB PO SCH (09:55)
[2024-12-18] MEDS: DOCUSATE SOD 100 MG CAP PO PRN (09:55)
[2024-12-18] MEDS: POLYETHYLENE GLYCOL 17 GM PWDR PO PRN (09:55)
--- NOTE | 2024-12-18 12:01 | DVHPN2 ---
Reviewed: Care Plan, H&P, Labs, Medications, Previous Orders, Radiology Changes from previous H/P or p: No Changes Objective Vitals Vital Signs Date Time Temp Pulse Resp B/P (MAP) Pulse Ox O2 Delivery O2 Flow Rate FiO2 12/18/24 09:55 56 131/84 12/18/24 09:00 96.4 16 95 96.4 12/18/24 08:00 Nasal Cannula* 3 32 Intake/Output Intake and Output 12/18/24 07:00 Intake Total 1576 ml Balance 1576 ml Intake Oral 1526 ml IV Total 50 ml # Voids 4 Medications Current Medications Medications Dose Ordered Sig/Nicky Route Start Time Stop Time Status Last Admin Dose Admin Acetaminophen 325 mg Q4HP PRN PO 12/16/24 23:15 Acetaminophen/ Hydrocodone Bitart 1 tab Q4HP PRN PO 12/16/24 23:15 12/18/24 09:56 1 TAB Ondansetron HCl 4 mg Q4HP PRN IV 12/16/24 23:15 Nitroglycerin 0.4 mg Q5MINP PRN SL 12/16/24 23:15 Morphine Sulfate 2 mg Q30M PRN IV 12/16/24 23:15 Labetalol HCl 10 mg Q2HPRN PRN IV 12/16/24 23:15 Atenolol 50 mg DAILY PO 12/17/24 10:00 12/18/24 09:55 50 MG Levalbuterol HCl 0.625 mg Q6HR NEB 12/17/24 00:00 12/18/24 06:03 0.625 MG Ipratropium [place] 0.5 mg Q6HWA NEB 12/17/24 06:00 12/18/24 06:02 0.5 MG Methylprednisolone Sodium Succinate 40 mg BID IV 12/17/24 10:00 12/18/24 09:55 40 MG Ceftriaxone Sodium 50 ml @ 100 mls/hr DAILY@09 IV 12/18/24 09:00 12/18/24 09:00 100 MLS/HR Azithromycin 500 mg DAILY PO 12/18/24 10:00 12/18/24 09:55 500 MG Polyethylene Glycol 17 gm DAILYPRN PRN PO 12/17/24 14:45 12/18/24 09:55 17 GM Docusate Sodium 100 mg BIDPRN PRN PO 12/17/24 14:45 12/18/24 09:55 100 MG Laboratory Results Laboratory Tests 12/18/24 06:58 Chemistry Test 12/18/24 06:58 Calcium Level 10.2 mg/dL (8.7-10.4) Urinalysis Test 12/16/24 22:14 Urine Color Light-yellow (Yellow) Urine Clarity Clear (Clear) Urine pH 6.0 (5.0-9.0) Urine Specific [place] 1.020 (1.001-1.035) Urine Protein Negative (Negative) Urine Ketones Negative (Negative) Urine Blood Negative /uL (Negative) Urine Nitrite Negative (Negative) Urine Bilirubin Negative (Negative) Urine Urobilinogen Normal mg/dL (Negative) Urine Leukocyte Esterase 1+ /uL (Negative) Urine RBC None seen /hpf (0 - 4) Urine Microscopic WBC 1 /HPF (0-5) Urine Squamous Epithelial Cells Few /hpf (<5) Urine Bacteria None seen /hpf (None Seen) Urine Glucose Normal mg/dL (Normal) Microbiology Microbiology Date/Time Source Procedure Growth Status 12/16/24 23:45 Blood Blood Culture - Preliminary NO GROWTH AFTER 24 HOURS OF INCUBATION. Resulted 12/16/24 22:14 Voided Urine Urine Culture - Preliminary Resulted Labs and/or images reviewed: Labs reviewed by me, Image(s) reviewed by me Assessment/Plan Assessment/Plan Covering for Dr. Gonzalez Acute hypoxic respiratory failure: Oxygen by nasal cannula Acute COPD exacerbation: Albuterol Atrovent med neb Solu-Medrol Possible pneumonia community-acquired Gram-positive versus Gram-negative: Rocephin azithromycin Acute exacerbation chronic systolic versus diastolic congestive heart failure echocardiogram: Lasix History of multiple aneurysms patient does not want any aggressive treatment Daughter angel Elder is an RN [phone] bedside and requesting patient to be discharged to [facility] hospice when ready to be discharged Plan discussed with: Patient Date of Service: Dec 18, 2024 Billing Provider: JB CHAVEZ MD Common Visit Codes: [id number] INP/OBS CARE(HIGH) JB CHAVEZ MD Dec 18, 2024 12:01
[2024-12-18] MEDS: HYDROmorphone HCL 2 MG/ML VL/or syr IV ONE (21:42)
[2024-12-19] VITALS (8 sets, daily range): BP systolic 66–152; BP diastolic 40–107; PULSE 61–112; RESP 14–30; TEMP 97.4–98.1; O2SAT 93–99
[2024-12-19] MEDS: HYDROmorphone HCL 2 MG/ML VL/or syr IV PRN (06:16)
--- NOTE | 2024-12-19 09:05 | DVHINCON2 ---
Date Seen: Dec 19, 2024 Family History: FH: pancreatic cancer G8 SISTER Allergies: Coded Allergies: NO KNOWN ALLERGIES (Unverified , 12/16/24) Home Meds Reported Medications Amlodipine Besylate (Amlodipine Besylate) 10 Mg Tab, 1 TAB PO DAILY 12/17/24 Current Medications Current Medications Medications (Trade) Dose Ordered Sig/Nicky Route PRN Reason Start Time Stop Time Status Last Admin Azithromycin (Zithromax Tablet) 500 mg DAILY PO 12/18/24 10:00 12/18/24 09:55 Hydromorphone HCl (Dilaudid Injection) 0.5 mg Q4HPRN PRN IV SEVERE PAIN (7-10 PAIN SCALE) 12/19/24 04:45 12/19/24 06:16 Vital Signs Vital Signs Date Time Temp Pulse Resp B/P (MAP) Pulse Ox O2 Delivery O2 Flow Rate FiO2 12/19/24 06:46 68 18 152/97 12/19/24 05:53 98 12/19/24 05:42 Nasal Cannula* 3 32 12/19/24 05:00 98.1 98.1 Labs/Diagnostic Data Labs Test 12/18/24 06:58 12/17/24 06:11 12/16/24 23:40 12/16/24 22:14 Range/Units White Blood Count 7.7 4.4-10.8 10^3/uL Red Blood Count 3.73 L 4.0-5.20 10^6/uL Hemoglobin 11.6 L 12.2-16.2 g/dL Hematocrit 34.4 L 36.0-46.0 % Mean Corpuscular Volume 92.1 80.0-100.0 fL Mean Corpuscular Hemoglobin 31.2 28.0-32.0 pg Mean Corpuscular Hemoglobin Concent 33.9 32.0-36.0 g/dL Red Cell Distribution Width 13.7 11.8-14.3 % Platelet Count 184 140-450 10^3/uL Mean Platelet Volume 7.0 6.9-10.8 fL Neutrophils (%) (Auto) 91.2 H 37.0-80.0 % Lymphocytes (%) (Auto) 2.6 L 10.0-50.0 % Monocytes (%) (Auto) 6.2 0.0-12.0 % Eosinophils (%) (Auto) 0.0 0.0-7.0 % Basophils (%) (Auto) 0.0 0.0-2.0 % Neutrophils # (Auto) 7.1 1.6-8.6 10 ^3/uL Lymphocytes # (Auto) 0.2 L 0.4-5.4 10 ^3/uL Monocytes # (Auto) 0.5 0-1.3 10 ^3/uL Eosinophils # (Auto) 0 0-0.8 10 ^3/uL Basophils # (Auto) 0 0-0.2 10 ^3/uL Nucleated Red Blood Cells 0.0 % Sodium Level 132 L 136-145 mmol/L Potassium Level 4.9 3.5-5.1 mmol/L Chloride Level 95 L 98-107 mmol/L Carbon Dioxide Level 30 20-31 mmol/L Anion Gap 7 5-15 Blood Urea Nitrogen 45 #H 9-23 mg/dL Creatinine 1.35 H 0.550-1.02 mg/dL Glomerular Filtration Rate Calc 39 >90 mL/min BUN/Creatinine Ratio 33.3 H 10.0-20.0 Serum Glucose 153 H 74-106 mg/dL Calcium Level 10.2 8.7-10.4 mg/dL Differential Total Cells Counted 100.0 100 Neutrophils % (Manual) 95 H 37.0-80.0 Band Neutrophils % (Manual) 0 Lymphocytes % (Manual) 5 L 10.0-50.0 Monocytes % (Manual) 0 0-12 Eosinophils % (Manual) 0 0-7 Basophils % (Manual) 0 0.0-2.0 Metamyelocytes % (manual) 0 Myelocytes % (Manual) 0 Promyelocytes % (Manual) 0 Blast Cells % (Manual) 0 Reactive Lymphocytes 0 Platelet Estimate Adequate Red Blood Cell Morphology Normal Total Bilirubin 0.4 0.2-1.0 mg/dL Aspartate Amino Transferase (AST) 20 13-40 U/L Alanine Aminotransferase (ALT) 17 7-40 U/L Alkaline Phosphatase 107 46-116 U/L Total Protein 7.7 5.7-8.2 g/dL Albumin 4.0 3.2-4.8 g/dL Prothrombin Time 12.4 H 9.3-11.8 sec Prothrombin Time INR 1.19 H 0.9-1.15 Activated Partial Thromboplast Time 30.7 24.5-34.5 SEC Urine Color Light-yellow Yellow Urine Clarity Clear Clear Urine pH 6.0 5.0-9.0 Urine Specific [place] 1.020 1.001-1.035 Urine Protein Negative Negative Urine Ketones Negative Negative Urine Blood Negative Negative /uL Urine Nitrite Negative Negative Urine Bilirubin Negative Negative Urine Urobilinogen Normal Negative mg/dL Urine Leukocyte Esterase 1+ Negative /uL Urine RBC None seen 0 - 4 /hpf Urine Microscopic WBC 1 0-5 /HPF Urine Squamous Epithelial Cells Few <5 /hpf Urine Bacteria None seen None Seen /hpf Urine Glucose Normal Normal mg/dL Urine Opiates Screen Neg NEGATIVE Urine Fentanyl Screen Neg NEGATIVE Urine Barbiturates Screen Neg NEGATIVE Urine Phencyclidine Screen Neg NEGATIVE Urine Amphetamines Screen Neg NEGATIVE Urine Benzodiazepines Screen Neg NEGATIVE Urine Cocaine Screen Neg NEGATIVE Urine Cannabinoids Screen Neg NEGATIVE Test 12/16/24 21:51 12/16/24 21:15 12/16/24 18:55 Range/Units Phosphorus Level 3.1 2.4-5.1 mg/dL Magnesium Level 2.1 1.6-2.6 mg/dL Troponin I High Sensitivity 19 </=34 ng/L Triglycerides Level 42 < 150 mg/dL Cholesterol Level 151 < 200 mg/dL LDL Cholesterol 71 < 100 mg/dL HDL Cholesterol 67 H 40-59 mg/dL Lipase 26 12-53 U/L Thyroid Stimulating Hormone (TSH) 0.89 0.55-4.78 uIU/mL Lactic Acid Level 2.0 0.4-2.0 mmol/L Hemoglobin A1c 5.6 <5.7 % A1C B-Type Natriuretic Peptide 357.93 0-100 pg/mL Vitamin B12 Level 733 211-911 pg/mL Vitamin D 25-Hydroxy 51.8 30.0-100 ng/mL Microbiology Date/Time Source Procedure Growth Status 12/17/24 13:10 Sputum Gram Stain - Final Resulted 12/17/24 13:10 Sputum Respiratory Culture - Preliminary Resulted 12/16/24 23:45 Blood Blood Culture - Preliminary NO GROWTH AFTER 48 HOURS OF INCUBATION. Resulted 12/16/24 22:14 Voided Urine Urine Culture - Preliminary Resulted Assessment Attended rapid response Plan discussed with: Other Date of Service: Dec 19, 2024 Billing Provider: FAWAD KERNS Common Visit Codes: [id number] INP/OBS CARE (HIGH) FAWAD KERNS Dec 19, 2024 09:05
[2024-12-19] MEDS: SODIUM CHLORIDE 0.9% 1,000 ML IV ONE (09:30)
[2024-12-19] MEDS ORDERED: LORazepam 2MG/ML-1ML VIAL IM ONE (09:30)
[2024-12-19] MEDS: LORazepam 2MG/ML-1ML VIAL ONE (09:38)
[2024-12-19] MEDS: LORazepam 2MG/ML-1ML VIAL IV ONE (10:24)
[2024-12-19] MEDS ORDERED: HYDROmorphone HCL 2 MG/ML VL/or syr IV PRN (12:00)
--- NOTE | 2024-12-19 12:03 | DVHPN2 ---
Reviewed: Care Plan, H&P, Labs, Medications, Previous Orders, Radiology Changes from previous H/P or p: No Changes Objective Vitals Vital Signs Date Time Temp Pulse Resp B/P (MAP) Pulse Ox O2 Delivery O2 Flow Rate FiO2 12/19/24 11:16 72 14 66/40 12/19/24 09:00 97.4 99 97.4 12/19/24 05:42 Nasal Cannula* 3 32 Intake/Output Intake and Output 12/19/24 07:00 Intake Total 1270 ml Output Total 800 ml Balance 470 ml Intake Oral 1220 ml IV Total 50 ml Blood Product 0 ml Output Urine Total 800 ml # Bowel Movements 1 Medications Current Medications Medications Dose Ordered Sig/Nicky Route Start Time Stop Time Status Last Admin Dose Admin Acetaminophen 325 mg Q4HP PRN PO 12/16/24 23:15 Acetaminophen/ Hydrocodone Bitart 1 tab Q4HP PRN PO 12/16/24 23:15 Hold 12/19/24 04:00 1 TAB Ondansetron HCl 4 mg Q4HP PRN IV 12/16/24 23:15 Nitroglycerin 0.4 mg Q5MINP PRN SL 12/16/24 23:15 Morphine Sulfate 2 mg Q30M PRN IV 12/16/24 23:15 Labetalol HCl 10 mg Q2HPRN PRN IV 12/16/24 23:15 Atenolol 50 mg DAILY PO 12/17/24 10:00 12/18/24 09:55 50 MG Methylprednisolone Sodium Succinate 40 mg BID IV 12/17/24 10:00 12/18/24 21:41 40 MG Ceftriaxone Sodium 50 ml @ 100 mls/hr DAILY@09 IV 12/18/24 09:00 12/18/24 09:00 100 MLS/HR Azithromycin 500 mg DAILY PO 12/18/24 10:00 12/18/24 09:55 500 MG Polyethylene Glycol 17 gm DAILYPRN PRN PO 12/17/24 14:45 12/18/24 09:55 17 GM Docusate Sodium 100 mg BIDPRN PRN PO 12/17/24 14:45 12/18/24 09:55 100 MG Hydromorphone HCl 0.5 mg Q4HPRN PRN IV 12/19/24 04:45 12/19/24 10:24 0.5 MG Lorazepam 1 mg Q2HP PRN IV 12/19/24 09:45 Hydromorphone HCl 0.5 mg Q2HPRN PRN IV 12/19/24 12:00 Laboratory Results Laboratory Tests 12/18/24 06:58 Urinalysis Test 12/16/24 22:14 Urine Color Light-yellow (Yellow) Urine Clarity Clear (Clear) Urine pH 6.0 (5.0-9.0) Urine Specific [place] 1.020 (1.001-1.035) Urine Protein Negative (Negative) Urine Ketones Negative (Negative) Urine Blood Negative /uL (Negative) Urine Nitrite Negative (Negative) Urine Bilirubin Negative (Negative) Urine Urobilinogen Normal mg/dL (Negative) Urine Leukocyte Esterase 1+ /uL (Negative) Urine RBC None seen /hpf (0 - 4) Urine Microscopic WBC 1 /HPF (0-5) Urine Squamous Epithelial Cells Few /hpf (<5) Urine Bacteria None seen /hpf (None Seen) Urine Glucose Normal mg/dL (Normal) Microbiology Microbiology Date/Time Source Procedure Growth Status 12/17/24 13:10 Sputum Gram Stain - Final Resulted 12/17/24 13:10 Sputum Respiratory Culture - Preliminary Resulted 12/16/24 23:45 Blood Blood Culture - Preliminary NO GROWTH AFTER 48 HOURS OF INCUBATION. Resulted 12/16/24 22:14 Voided Urine Urine Culture - Preliminary Resulted Labs and/or images reviewed: Labs reviewed by me, Image(s) reviewed by me Assessment/Plan Assessment/Plan Covering for Dr. Gonzalez Acute hypoxic respiratory failure: Oxygen by nasal cannula Acute COPD exacerbation: Albuterol Atrovent med neb Solu-Medrol Possible pneumonia community-acquired Gram-positive versus Gram-negative: Rocephin azithromycin Acute exacerbation chronic systolic versus diastolic congestive heart failure echocardiogram: Lasix History of multiple aneurysms patient does not want any aggressive treatment Daughter Jerrod, who is an RN [phone] bedside and requesting patient to be discharged to [facility] when ready to be discharged Rapid response team was called around 9:00 a.m. on 12/19/2024 as the patient was pale diaphoretic and with low blood pressure. Dr Pantoja who attended spoke to me and felt the patient might have had ruptured aneurysm Patient is DNR Ativan and morphine given for pain and comfort measures initiated Daughter was informed Prognosis grave Plan discussed with: Patient My Orders Orders - JB CHAVEZ MD Procedure Category Date Status Time Electrocardigram EKG 12/19/24 Logged 04:14 Sodium Chloride 0.9% PHA 12/19/24 In Process 09:30 Date of Service: Dec 19, 2024 Billing Provider: JB CHAVEZ MD Common Visit Codes: [id number] INP/OBS CARE(HIGH) JB CHAVEZ MD Dec 19, 2024 12:03
[2024-12-19] MEDS: LORazepam 2MG/ML-1ML VIAL IV PRN (12:17)
[2024-12-19] MEDS ORDERED: SODIUM CHLORIDE 0.9% 1,000 ML IV SCH (17:30)
--- NOTE | 2024-12-20 08:45 | DVHDS2 ---
Summary Date of Admission Dec 16, 2024 at 23:01 Date and Time of Expiration: Dec 19, 2024 13:01 Reason for Admission: Shortness of breath Wounds: None Labs/Diagnostic Data: Laboratory Results Test 12/18/24 06:58 12/17/24 06:11 12/16/24 23:40 12/16/24 22:14 White Blood Count 7.7 10^3/uL (4.4-10.8) Red Blood Count 3.73 10^6/uL (4.0-5.20) Hemoglobin 11.6 g/dL (12.2-16.2) Hematocrit 34.4 % (36.0-46.0) Mean Corpuscular Volume 92.1 fL (80.0-100.0) Mean Corpuscular Hemoglobin 31.2 pg (28.0-32.0) Mean Corpuscular Hemoglobin Concent 33.9 g/dL (32.0-36.0) Red Cell Distribution Width 13.7 % (11.8-14.3) Platelet Count 184 10^3/uL (140-450) Mean Platelet Volume 7.0 fL (6.9-10.8) Neutrophils (%) (Auto) 91.2 % (37.0-80.0) Lymphocytes (%) (Auto) 2.6 % (10.0-50.0) Monocytes (%) (Auto) 6.2 % (0.0-12.0) Eosinophils (%) (Auto) 0.0 % (0.0-7.0) Basophils (%) (Auto) 0.0 % (0.0-2.0) Neutrophils # (Auto) 7.1 10 ^3/uL (1.6-8.6) Lymphocytes # (Auto) 0.2 10 ^3/uL (0.4-5.4) Monocytes # (Auto) 0.5 10 ^3/uL (0-1.3) Eosinophils # (Auto) 0 10 ^3/uL (0-0.8) Basophils # (Auto) 0 10 ^3/uL (0-0.2) Nucleated Red Blood Cells 0.0 % Sodium Level 132 mmol/L (136-145) Potassium Level 4.9 mmol/L (3.5-5.1) Chloride Level 95 mmol/L (98-107) Carbon Dioxide Level 30 mmol/L (20-31) Anion Gap 7 (5-15) Blood Urea Nitrogen 45 mg/dL (9-23) Creatinine 1.35 mg/dL (0.550-1.02) Glomerular Filtration Rate Calc 39 mL/min (>90) BUN/Creatinine Ratio 33.3 (10.0-20.0) Serum Glucose 153 mg/dL (74-106) Calcium Level 10.2 mg/dL (8.7-10.4) Differential Total Cells Counted 100.0 (100) Neutrophils % (Manual) 95 (37.0-80.0) Band Neutrophils % (Manual) 0 Lymphocytes % (Manual) 5 (10.0-50.0) Monocytes % (Manual) 0 (0-12) Eosinophils % (Manual) 0 (0-7) Basophils % (Manual) 0 (0.0-2.0) Metamyelocytes % (manual) 0 Myelocytes % (Manual) 0 Promyelocytes % (Manual) 0 Blast Cells % (Manual) 0 Reactive Lymphocytes 0 Platelet Estimate Adequate Red Blood Cell Morphology Normal Total Bilirubin 0.4 mg/dL (0.2-1.0) Aspartate Amino Transferase (AST) 20 U/L (13-40) Alanine Aminotransferase (ALT) 17 U/L (7-40) Alkaline Phosphatase 107 U/L (46-116) Total Protein 7.7 g/dL (5.7-8.2) Albumin 4.0 g/dL (3.2-4.8) Prothrombin Time 12.4 sec (9.3-11.8) Prothrombin Time INR 1.19 (0.9-1.15) Activated Partial Thromboplast Time 30.7 SEC (24.5-34.5) Urine Color Light-yellow (Yellow) Urine Clarity Clear (Clear) Urine pH 6.0 (5.0-9.0) Urine Specific [place] 1.020 (1.001-1.035) Urine Protein Negative (Negative) Urine Ketones Negative (Negative) Urine Blood Negative /uL (Negative) Urine Nitrite Negative (Negative) Urine Bilirubin Negative (Negative) Urine Urobilinogen Normal mg/dL (Negative) Urine Leukocyte Esterase 1+ /uL (Negative) Urine RBC None seen /hpf (0 - 4) Urine Microscopic WBC 1 /HPF (0-5) Urine Squamous Epithelial Cells Few /hpf (<5) Urine Bacteria None seen /hpf (None Seen) Urine Glucose Normal mg/dL (Normal) Urine Opiates Screen Neg (NEGATIVE) Urine Fentanyl Screen Neg (NEGATIVE) Urine Barbiturates Screen Neg (NEGATIVE) Urine Phencyclidine Screen Neg (NEGATIVE) Urine Amphetamines Screen Neg (NEGATIVE) Urine Benzodiazepines Screen Neg (NEGATIVE) Urine Cocaine Screen Neg (NEGATIVE) Urine Cannabinoids Screen Neg (NEGATIVE) Test 12/16/24 21:51 12/16/24 21:15 12/16/24 18:55 Phosphorus Level 3.1 mg/dL (2.4-5.1) Magnesium Level 2.1 mg/dL (1.6-2.6) Troponin I High Sensitivity 19 ng/L (</=34) Triglycerides Level 42 mg/dL (< 150) Cholesterol Level 151 mg/dL (< 200) LDL Cholesterol 71 mg/dL (< 100) HDL Cholesterol 67 mg/dL (40-59) Lipase 26 U/L (12-53) Thyroid Stimulating Hormone (TSH) 0.89 uIU/mL (0.55-4.78) Lactic Acid Level 2.0 mmol/L (0.4-2.0) Hemoglobin A1c 5.6 % A1C (<5.7) B-Type Natriuretic Peptide 357.93 pg/mL (0-100) Vitamin B12 Level 733 pg/mL (211-911) Vitamin D 25-Hydroxy 51.8 ng/mL (30.0-100) Other Laboratory Tests 12/18/24 06:58 Brief Hx & Hospital Course: 84-year-old female with a history of COPD congestive heart failure multiple aortic aneurysms refused treatment in the past does not want pursue any aggressive treatment for aneurysms burden by daughter for shortness of breath. CT abdomen pelvis without contrast showed aneurysms with the aorta starting from ascending aorta arch of aorta descending aorta suprarenal aorta and infrarenal aorta patient does not want any aggressive treatment and the daughter agreed with the patient. Possible aspiration pneumonia treated with the Rocephin and azithromycin congestive heart failure treated with Lasix The daughter requested hospice placement and discharge on Saturday. Meanwhile on 12/19/2024 around 1:01 p.m. the patient coded and at 1:01 p.m. resuscitation efforts were unsuccessful. Probable cause of acute hemorrhagic shock secondary to ruptured abdominal aneurysm. The daughter was informed by the RN. Cause of : Acute hemorrhagic shock Ruptured aortic aneurysm Possible aspiration pneumonia Multiple aortic aneurysms Consults/Reason for consult None Operations or Procedures CT abdomen pelvis without contrast Final Diagnosis/Problems List Acute hypoxic respiratory failure: Oxygen by nasal cannula Acute COPD exacerbation: Albuterol Atrovent med neb Solu-Medrol Possible pneumonia community-acquired Gram-positive versus Gram-negative: Rocephin azithromycin Acute exacerbation chronic systolic versus diastolic congestive heart failure echocardiogram: Lasix History of multiple aneurysms patient does not want any aggressive treatmen Discharge Disposition: at Hospital 39 (Time taken for summary 39 minutes) JB CHAVEZ MD Dec 20, 2024 08:45
--- NOTE | 2024-12-20 09:48 | ECG ---
[facility] Test Date: 2024-12-19 Test Time: 04:14:51 Pat Name: DELVIS PRITCHARD [facility]: [facility] Gender: F [employer]: at : 1940 Requested By: JB CHAVEZ Order Number: [id number] Reading MD: Cain Millard Measurements Intervals [place] Rate: 110 P: -24 MS: 167 QRS: -66 QRSD: 117 T: 107 QT: 315 QTc: 427 Interpretive Statements Sinus tachycardia Probable left atrial enlargement Left anterior fascicular block LVH with secondary repolarization abnormality Electronically Signed On 12-22-2024 15:05:02 PDT by Cain Millard Please click the below link to view image of tracing.
--- NOTE | 2024-12-21 18:39 | DVHSR ---
APPROVED REPORT EXAM: Two-dimensional and M-mode echocardiogram with Doppler and color Doppler. Blood Pressure: 131/94 mmHg INDICATION Heart Failure RISK FACTORS Height: 5'4", Weight: 116 DIMENSIONS LVDd4.2 (3.8-5.7cm)LA (2D)3.8 (1.9-4.0cm)Aortic Root3.1 (2.0-3.7cm) LVDs2.9 (2.5-4.0cm)LA (MM) (1.9-4.0cm)Aortic Cusp Exc1.0 (1.5-2.0cm) EF (%) 60.0 (55-70%)Rt. Atrium4.4 (1.9-4.0cm)Asc. Aorta3.6 cm IVSd1.8 (0.7-1.1cm)RV (D) (1.8-2.4cm) PWd0.7 (0.7-1.1cm) Mitral Valve MitralMitral Stenosis E wave0.66m/sMV Mean GR.mmHg A wave0.92m/sMV Peak GR.mmHg E/A ratio0.72D MVAcm2 DECEL [id number] 1/2 [place] Aortic Valve Aortic ValveAortic Stenosis V11.19m/[place] Mean GR.14mmHg V22.42m/[place] Peak GR.25mmHg LVOT Diameter2.1 (1.8-2.4cm)Doppler AVA1.70cm2 2D AVA1.60cm2 AI P 1/2 [id number] Pulmonic Valve V20.97m/s Tricuspid Valve TR Velocity2.92m/s [id number] Conclusion Technically good study. Sinus rhythm. Concentric LVH with septal hypertrophy. Left atrial enlargement. Mild dilation of the sinuses of V alsalva. Mild aortic sclerosis without stenosis. Left ventricular function is preserved at 65% with normal RV function. Moderate tricuspid regurgitation. Moderate aortic insufficiency. Mild pulmonic insufficiency. Incr eased velocity across the aortic valve with a mean gradient of14 mmHg and a peak gradient of25 mmHg c onsistent with mild aortic stenosis however this is as a consequence of septal hypertrophy encroachin g upon the outflow tract without actual aortic stenosis present. Large pleural effusion. No pericardial effusion masses or vegetations.
== END 2024-12-19 13:01 | DRG 299 ==
LOC: ER 17:42 → EDBD 17:42 → OVERFLOW 23:01 → TELE-WESTW 23:51
PROVIDERS: ADMIT Family Medicine; ATTEND Family Medicine
DX: I71.30 Abdominal aortic aneurysm, ruptured, unspecified (principal); I50.43 Acute on chronic combined systolic (congestive) and diastolic (congestive) heart failure; J15.69 Pneumonia due to other Gram-negative bacteria; N17.0 Acute kidney failure with tubular necrosis; J96.01 Acute respiratory failure with hypoxia; J69.0 Pneumonitis due to inhalation of food and vomit; J15.9 Unspecified bacterial pneumonia; J44.1 Chronic obstructive pulmonary disease with (acute) exacerbation; E87.1 Hypo-osmolality and hyponatremia; J44.0 Chronic obstructive pulmonary disease with (acute) lower respiratory infection; R57.8 Other shock; E83.52 Hypercalcemia; D64.9 Anemia, unspecified; I11.0 Hypertensive heart disease with heart failure; M89.521 Osteolysis, right upper arm; H02.401 Unspecified ptosis of right eyelid; Z99.81 Dependence on supplemental oxygen; J43.9 Emphysema, unspecified; E78.5 Hyperlipidemia, unspecified; Z82.49 Family history of ischemic heart disease and other diseases of the circulatory system; Z83.3 Family history of diabetes mellitus; Z80.0 Family history of malignant neoplasm of digestive organs; Z79.899 Other long term (current) drug therapy; Z87.891 Personal history of nicotine dependence; Z51.5 Encounter for palliative care; Z86.79 Personal history of other diseases of the circulatory system
CPT/HCPCS: 36415; 71045; 71260; 74177; 80048; 80053; 80061; 80307; 81001; 82306; 82607; 83036; 83605; 83690; 83735; 83880; 84100; 84443; 84484; 85007; 85025; 85027; 85610; 85730; 87040; 87070; 87086; 87205; 93005; 93306; 94640; 96365; 96375; G0378